=== PATIENT | male | born 1980 | race Caucasian/White ===

== ENCOUNTER 2024-03-28 23:18 | Emergency (ER) | payer SELFPAY ==
[~2024-03-28] VITALS: Ht 182.9 cm; Wt 93.0 kg
[2024-03-28 23:37] VITALS: RESP 18; TEMP 97.8; O2SAT 99
[2024-03-29] MEDS ORDERED: LIDOCAINE HCL/EPINEPHRINE 1%-EPI 1:100,000 20 ML VIAL INFIL ONE (01:00)
[2024-03-29] MEDS ORDERED: IBUP-2029 MT (02:10)
[2024-03-29] MEDS ORDERED: CEPH500C2 MT (02:10)
[2024-03-29 02:45] VITALS: BP 145/86; PULSE 62
[2024-03-29] MEDS: IBUPROFEN 600MG TABLET PO ONE (02:45)
== END 2024-03-29 00:53 | disposition home or self-care (01) ==
LOC: ER 03-29 00:49
DX: L02.31 Cutaneous abscess of buttock (principal)
CPT/HCPCS: 10060; 99283; J3490; Z7610 ×4